=== PATIENT | male | born 1985 | race Caucasian/White ===

== ENCOUNTER 2018-03-24 12:28 | Observation (INO) ==
[2018-03-24 13:31] LABS: Bilirubin,Urine Large (Negative); Clarity,Urine Clear (Clear); Color,Urine Orange (Yellow); Glucose,Urine (UA) Normal (Normal); Ketones,Urine Trace mg/dL (Negative); Specific Gravity,Urine 1.015 (1.010-1.025)
[2018-03-24 13:31] LABS: Basophils % 0.6 %; Eosinophils # 0.1 K/mcL (0.0-0.6); Eosinophils % 0.7 %; Hematocrit 42.2 % (37.5-50.1); Hemoglobin 14.5 g/dL (12.9-16.9); Immature Granulocytes % 0.6 % (0-4); Lymphocytes # 1.4 K/mcL (0.6-4.6); Lymphocytes % 20.2 %; Mean Corpuscular HGB Conc 34.4 g/dL (31.6-35.5); Mean Corpuscular Hemoglobin 27.7 pg (28.0-33.3); Mean Corpuscular Volume 80.7 fL (83.0-100.0); Mean Platelet Volume 10.2 fL (9.4-12.4); Monocytes # 0.9 K/mcL (0.0-1.3); Monocytes % 13.8 %; Neutrophils # 4.3 K/mcL (1.6-8.9); Platelet Count 313 K/mcL (140-400); Red Blood Count 5.23 M/mcL (4.19-5.50); Segmented Neutrophils % 64.1 %
[2018-03-24 13:32] LABS: Blood,Urine Negative (Negative); Leukocyte Esterase,Urine Trace (Negative); Nitrite,Urine Negative (Negative); Protein,Urine Negative (Neg-Trace); Urobilinogen,Urine Normal (Normal)
[2018-03-24 13:34] LABS: Bacteria,Urine Moderate per hpf (None-Few); RBC,Urine 0-3 per hpf (0-3); Squamous Epithelial Cell,Urine Few per lpf (None-Few); WBC,Urine 0-3 per hpf (0-3)
--- NOTE | 2018-03-24 14:06 | Emergency Department Note ---
Disposition Clinical Impression: Jaundice Hepatitis C Qualifiers: Viral hepatitis chronicity: unspecified Hepatic coma status: without hepatic coma Qualified Code(s): B19.20 - Unspecified viral hepatitis C without hepatic coma Abdominal pain Qualifiers: Abdominal location: right upper quadrant Qualified Code(s): R10.11 - Right upper quadrant pain Disposition: Admitted As Inpatient Condition: Fair General Adult HPI - General Chief complaint: ED General Medical Stated complaint: Jaundice/abd pain/NV Source: patient, family Limitations: no limitations Nursing Notes Reviewed: Yes Vital Signs Reviewed: Yes - History of Present Illness HPI Narrative: 32-year-old male presents emergency department with concern for right upper quadrant pain, turning more yellow, nausea vomiting. Patient states that he had episode of nausea vomiting couple days ago. Patient has history of hepatitis C. Is secondary to IV drug use. Patient denies any alcohol use. Does report using cocaine, marijuana, opiates. Pain Scale: 5 - Related Data Home Medications Medication Instructions Recorded Confirmed Tamsulosin HCl [Flomax] 0.4 mg PO DAILY 03/24/18 03/24/18 Testosterone [Androgel] 6 pump TD DAILY 03/24/18 03/24/18 Allergies Allergy/AdvReac Type Severity Reaction Status Date / Time No Known Allergies Allergy Verified 03/24/18 12:53 All systems ED: reviewed and negative except as stated. Review of Systems: As Per HPI Constitutional: Denies: fever Respiratory: Denies: dyspnea Gastrointestinal: Reports: abdominal pain, nausea, vomiting, diarrhea Genitourinary: Reports: dysuria. Denies: urgency, frequency Musculoskeletal: Denies: neck pain Integumentary: Denies: rash Neurological: Denies: headache, weakness, numbness, paresthesias Psychiatric: Denies: anxiety Past Medical History - Past Medical History Medical history: Reports: hepatitis, other Psychiatric history: Reports: anxiety - Social History Smoking Status: Current some day smoker Smokeless Tobacco Status: No Alcohol use: Reports: none Drug use: Reports: cocaine, opiates, marijuana, IV Drug Use Physical Exam - General Limitations: no limitations General appearance: alert - Head Head exam: normocephalic - Eye Eye exam: Present: EOMI, scleral icterus - ENT ENT exam: normal oropharynx - Neck Neck exam: Present: trachea midline - Chest Chest inspection: Present: symmetric chest wall rise - Respiratory Respiratory exam: Present: normal lung sounds bilaterally. Absent: respiratory distress - Cardiovascular Cardiovascular exam: Present: regular rate, normal rhythm, normal heart sounds - Abdominal Exam Abdominal exam: Present: soft, Non-Tender. Absent: distention, guarding, rebound, rigidity - Extremities Exam Extremities exam: Present: normal capillary refill - Expanded Lower Extremity Exam Hip/Pelvis exam: Present: full ROM - Back Exam Back exam: Present: full ROM. Absent: CVA tenderness (R), CVA tenderness (L) - Neurological Exam Neurological exam: Present: alert, oriented X3 - Psychiatric Psychiatric exam: Present: normal affect, normal mood Course Vital Signs Temperature 98.9 F 03/24/18 12:53 Pulse Rate 101 03/24/18 12:53 Respiratory Rate 20 03/24/18 12:53 Blood Pressure 128/75 03/24/18 12:53 O2 Sat by Pulse Oximetry 99 03/24/18 12:53 Temperature 98.9 F 03/24/18 13:13 Pulse Rate 78 03/24/18 17:41 Respiratory Rate 16 03/24/18 17:41 Blood Pressure 130/76 03/24/18 17:41 O2 Sat by Pulse Oximetry 100 03/24/18 17:41 Oxygen Delivery Oxygen Delivery Room Air Medical Decision Making - [facility] Narrative Medical decision making narrative: 32-year-old male presents emergency department with concern for right upper quadrant abdominal pain, intermittent nausea vomiting a few days ago, with jaundice. Patient has a total bilirubin of 12.1. He has a direct bilirubin of 7.6, indirect at 4.5. AST is 89, a ALT is greater than 500. Patient does have history of hepatitis C. We obtained a CT scan of abdomen and pelvis as well as the right upper quadrant ultrasound. Both reported a contracted gallbladder. Liver ultrasound revealed a punctate gallbladder polyp. Possible wall thickening in the descending colon. Do not think this is a colitis picture at this time. We will not give antibiotics at this time. I spoken to Dr. Gentile, the communications technologist. He stated he would follow patient on the floor as a consult. Also stated to order a by Tee panel. This is been ordered and is pending at the time of admission. Spoke with the hospitalist who requested Tylenol as well as urine drug screen. These results are currently pending at time of admission. I discussed admission with patient as well as parents at bedside. They agree with plan. Patient jaundice, but not in any acute distress at time of admission. Abdomen/Pelvis CT 03/24/18 14:06 IMPRESSION: 1. Mild wall thickening in the ascending colon, which is nonspecific and could be related to incomplete distention/peristalsis versus colitis. 2. Contracted gallbladder. 3. Normal appendix. 4. Moderate fecal material throughout the colon, suggesting constipation. 5. Tiny focus of hypoenhancement in the posterior upper left kidney. This finding can be seen in the setting of pyelonephritis, but this does not appear to fit with the patient's symptoms. Other possibilities might include artifact or irregular tiny complex cyst. Correlation with clinical findings is recommended. D/ / 03/24/2018 16:22:20 Tawanna Marie / omid Interpreting Provider: Tawanna Marie Liver Ultrasound 03/24/18 14:07 IMPRESSION: 1. Contracted gallbladder. 2. Probable punctate gallbladder polyp. 3. A 2.1 cm right renal cyst. 4. Suboptimal evaluation of the pancreas due to overlying bowel gas. D/ / 03/24/2018 15:38:10 Mary Ellen George MD / omid Interpreting Provider: Mary Ellen George MD Vital Signs Temperature 98.9 F 03/24/18 12:53 Pulse Rate 101 03/24/18 12:53 Respiratory Rate 20 03/24/18 12:53 Blood Pressure 128/75 03/24/18 12:53 O2 Sat by Pulse Oximetry 99 03/24/18 12:53 Temperature 98.9 F 03/24/18 13:13 Pulse Rate 78 03/24/18 17:41 Respiratory Rate 16 03/24/18 17:41 Blood Pressure 130/76 03/24/18 17:41 O2 Sat by Pulse Oximetry 100 03/24/18 17:41 Oxygen Delivery Oxygen Delivery Room Air - Lab Data Result diagrams: 03/24/18 13:13 03/24/18 13:13 Lab Results 03/24/18 03/24/18 03/24/18 Range/Units 13:10 13:13 13:13 WBC 6.7 (4.3-11.1) K/mcL RBC 5.23 (4.19-5.50) M/mcL Hgb 14.5 (12.9-16.9) g/dL Hct 42.2 (37.5-50.1) % MCV 80.7 L (83.0-100.0) fL MCH 27.7 L (28.0-33.3) pg MCHC 34.4 (31.6-35.5) g/dL RDW 18.0 H (11.5-14.5) % Plt Count 313 (140-400) K/mcL MPV 10.2 (9.4-12.4) fL Immature Gran % 0.6 (0-4) % Seg Neutrophils % 64.1 % Lymphocytes % 20.2 % Monocytes % 13.8 % Eosinophils % 0.7 % Basophils % 0.6 % Neutrophils # 4.3 (1.6-8.9) K/mcL Lymphocytes # 1.4 (0.6-4.6) K/mcL Monocytes # 0.9 (0.0-1.3) K/mcL Eosinophils # 0.1 (0.0-0.6) K/mcL Basophils # 0.0 (0.0-0.2) K/mcL Sodium 137 (136-145) mEq/L Potassium 3.6 (3.5-5.1) mEq/L Chloride 102 (98-107) mEq/L Carbon Dioxide 30 H (23-29) mEq/L BUN 8 (6-20) mg/dL Creatinine 0.86 (0.70-1.30) mg/dL Est GFR ( Amer) > 60 (> 60) Est GFR (Non-Af Amer) > 60 (> 60) BUN/Creatinine Ratio 9 (6-26) Glucose 126 H (70-105) mg/dL Calculated Osmolality 284 (280-300) Calcium 8.9 (8.6-10.3) mg/dL Total Bilirubin 12.8 H (0.3-1.0) mg/dL Direct Bilirubin (0.0-0.2) mg/dL Indirect Bilirubin (0.0-1.2) mg/dL AST 94 H (13-39) Units/L ALT > 500 H (7-52) Units/L Alkaline Phosphatase 160 H (34-104) Units/L Serum Total Protein 6.8 (6.4-8.9) g/dL Albumin 3.2 L (3.5-5.7) g/dL Globulin 3.6 H (2.4-3.5) g/dL Albumin/Globulin Ratio 0.9 L (1.1-2.2) Amylase 72 (29-103) Units/L Lipase 74 (11-82) Units/L Urine Color [place] A (Yellow) Urine Clarity Clear (Clear) Urine pH 6.0 (5.0-8.0) pH Units Ur Specific [place] 1.015 (1.010-1.025) Urine Protein Negative (Neg-Trace) mg/dL Urine Glucose (UA) Normal (Normal) mg/dL Urine Ketones Trace H (Negative) mg/dL Urine Blood Negative (Negative) Urine Nitrite Negative (Negative) Urine Bilirubin Large H (Negative) Urine Urobilinogen Normal (Normal) mg/dL Ur Leukocyte Esterase Trace H (Negative) Urine Microscopic RBC 0-3 (0-3) per hpf Urine Microscopic WBC 0-3 (0-3) per hpf Ur Squamous Epith Cells Few (None-Few) per lpf Urine Bacteria Moderate H (None-Few) per hpf Ur Culture Indicated? YES A (NO) Salicylates (15.0-30.0) mg/dL Acetaminophen (10-20) mcg/mL Ethyl Alcohol (Less than 10) mg/dL 03/24/18 03/24/18 Range/Units 16:46 16:46 WBC (4.3-11.1) K/mcL RBC (4.19-5.50) M/mcL Hgb (12.9-16.9) g/dL Hct (37.5-50.1) % MCV (83.0-100.0) fL MCH (28.0-33.3) pg MCHC (31.6-35.5) g/dL RDW (11.5-14.5) % Plt Count (140-400) K/mcL MPV (9.4-12.4) fL Immature Gran % (0-4) % Seg Neutrophils % % Lymphocytes % % Monocytes % % Eosinophils % % Basophils % % Neutrophils # (1.6-8.9) K/mcL Lymphocytes # (0.6-4.6) K/mcL Monocytes # (0.0-1.3) K/mcL Eosinophils # (0.0-0.6) K/mcL Basophils # (0.0-0.2) K/mcL Sodium (136-145) mEq/L Potassium (3.5-5.1) mEq/L Chloride (98-107) mEq/L Carbon Dioxide (23-29) mEq/L BUN (6-20) mg/dL Creatinine (0.70-1.30) mg/dL Est GFR ( Amer) (> 60) Est GFR (Non-Af Amer) (> 60) BUN/Creatinine Ratio (6-26) Glucose (70-105) mg/dL Calculated Osmolality (280-300) Calcium (8.6-10.3) mg/dL Total Bilirubin 12.1 H 12.1 H (0.3-1.0) mg/dL Direct Bilirubin 7.4 H 7.6 H (0.0-0.2) mg/dL Indirect Bilirubin 4.7 H 4.5 H (0.0-1.2) mg/dL AST 89 H (13-39) Units/L ALT > 500 H (7-52) Units/L Alkaline Phosphatase 159 H (34-104) Units/L Serum Total Protein 6.6 (6.4-8.9) g/dL Albumin 3.1 L (3.5-5.7) g/dL Globulin 3.5 (2.4-3.5) g/dL Albumin/Globulin Ratio 0.9 L (1.1-2.2) Amylase (29-103) Units/L Lipase (11-82) Units/L Urine Color (Yellow) Urine Clarity (Clear) Urine pH (5.0-8.0) pH Units Ur Specific [place] (1.010-1.025) Urine Protein (Neg-Trace) mg/dL Urine Glucose (UA) (Normal) mg/dL Urine Ketones (Negative) mg/dL Urine Blood (Negative) Urine Nitrite (Negative) Urine Bilirubin (Negative) Urine Urobilinogen (Normal) mg/dL Ur Leukocyte Esterase (Negative) Urine Microscopic RBC (0-3) per hpf Urine Microscopic WBC (0-3) per hpf Ur Squamous Epith Cells (None-Few) per lpf Urine Bacteria (None-Few) per hpf Ur Culture Indicated? (NO) Salicylates < 2.5 L (15.0-30.0) mg/dL Acetaminophen < 10 L (10-20) mcg/mL Ethyl Alcohol < 10 (Less than 10) mg/dL
[2018-03-24] MEDS ORDERED: Isovue-370 500 ML INFUS..BTL IV ONE (14:07)
[2018-03-24 14:16] LABS: Alanine Aminotransferase > 500 Units/L (7-52); Albumin 3.2 g/dL (3.5-5.7); Albumin/Globulin Ratio 0.9 (1.1-2.2); Alkaline Phosphatase 160 Units/L (34-104); Amylase 72 Units/L (29-103); Aspartate Amino Transferase 94 Units/L (13-39); BUN/Creatinine Ratio 9 (6-26); Bilirubin,Total 12.8 mg/dL (0.3-1.0); Blood Urea Nitrogen 8 mg/dL (6-20); Calcium 8.9 mg/dL (8.6-10.3); Carbon Dioxide 30 mEq/L (23-29); Chloride 102 mEq/L (98-107); Globulin 3.6 g/dL (2.4-3.5); Glucose 126 mg/dL (70-105); Lipase 74 Units/L (11-82); Osmolality,Calculated 284 (280-300); Potassium 3.6 mEq/L (3.5-5.1); Sodium 137 mEq/L (136-145); Total Protein 6.8 g/dL (6.4-8.9); eGFR For African Americans > 60 (> 60); eGFR For Non-African Americans > 60 (> 60)
[2018-03-24] MEDS ORDERED: Nicotine 21 MG PATCH.TD24 TD STA (14:34)
--- NOTE | 2018-03-24 16:41 | Emergency Department Note ---
Disposition Clinical Impression: Jaundice Hepatitis C Qualifiers: Viral hepatitis chronicity: unspecified Disposition: Admitted As Inpatient Referrals: Adan Andujar MD [Primary Care Provider] - Forms: ED Satisfaction Letter, Work/School Release General Adult HPI - General Chief complaint: ED General Medical Stated complaint: Jaundice/abd pain/NV Source: patient, family Limitations: no limitations - History of Present Illness Pain Scale: 5 - Related Data Home Medications Medication Instructions Recorded Confirmed Amitriptyline 01/10/18 Androgel 01/10/18 Flomax 01/10/18 Pantoprazole 01/10/18 Previous Rx's Medication Instructions Recorded Acyclovir [Zovirax] 400 mg PO 5XD 5 Days #25 tablet 01/10/18 Allergies Allergy/AdvReac Type Severity Reaction Status Date / Time No Known Allergies Allergy Verified 03/24/18 12:53 Past Medical History - Past Medical History Medical history: Reports: hepatitis, other Psychiatric history: Reports: anxiety - Social History Smoking Status: Current some day smoker Smokeless Tobacco Status: No Alcohol use: Reports: none Drug use: Reports: cocaine, opiates, marijuana, IV Drug Use Physical Exam - General Limitations: no limitations General appearance: alert Course Vital Signs Temperature 98.9 F 03/24/18 12:53 Pulse Rate 101 03/24/18 12:53 Respiratory Rate 20 03/24/18 12:53 Blood Pressure 128/75 03/24/18 12:53 O2 Sat by Pulse Oximetry 99 03/24/18 12:53 Temperature 98.9 F 03/24/18 13:13 Pulse Rate 88 03/24/18 16:12 Respiratory Rate 16 03/24/18 16:12 Blood Pressure 119/70 03/24/18 16:12 O2 Sat by Pulse Oximetry 100 03/24/18 16:12 Oxygen Delivery Oxygen Delivery Room Air Medical Decision Making - Lab Data Result diagrams: 03/24/18 13:13 03/24/18 13:13 Lab Results 03/24/18 03/24/18 03/24/18 Range/Units 13:10 13:13 13:13 WBC 6.7 (4.3-11.1) K/mcL RBC 5.23 (4.19-5.50) M/mcL Hgb 14.5 (12.9-16.9) g/dL Hct 42.2 (37.5-50.1) % MCV 80.7 L (83.0-100.0) fL MCH 27.7 L (28.0-33.3) pg MCHC 34.4 (31.6-35.5) g/dL RDW 18.0 H (11.5-14.5) % Plt Count 313 (140-400) K/mcL MPV 10.2 (9.4-12.4) fL Immature Gran % 0.6 (0-4) % Seg Neutrophils % 64.1 % Lymphocytes % 20.2 % Monocytes % 13.8 % Eosinophils % 0.7 % Basophils % 0.6 % Neutrophils # 4.3 (1.6-8.9) K/mcL Lymphocytes # 1.4 (0.6-4.6) K/mcL Monocytes # 0.9 (0.0-1.3) K/mcL Eosinophils # 0.1 (0.0-0.6) K/mcL Basophils # 0.0 (0.0-0.2) K/mcL Sodium 137 (136-145) mEq/L Potassium 3.6 (3.5-5.1) mEq/L Chloride 102 (98-107) mEq/L Carbon Dioxide 30 H (23-29) mEq/L BUN 8 (6-20) mg/dL Creatinine 0.86 (0.70-1.30) mg/dL Est GFR ( Amer) > 60 (> 60) Est GFR (Non-Af Amer) > 60 (> 60) BUN/Creatinine Ratio 9 (6-26) Glucose 126 H (70-105) mg/dL Calculated Osmolality 284 (280-300) Calcium 8.9 (8.6-10.3) mg/dL Total Bilirubin 12.8 H (0.3-1.0) mg/dL AST 94 H (13-39) Units/L ALT > 500 H (7-52) Units/L Alkaline Phosphatase 160 H (34-104) Units/L Serum Total Protein 6.8 (6.4-8.9) g/dL Albumin 3.2 L (3.5-5.7) g/dL Globulin 3.6 H (2.4-3.5) g/dL Albumin/Globulin Ratio 0.9 L (1.1-2.2) Amylase 72 (29-103) Units/L Lipase 74 (11-82) Units/L Urine Color [place] A (Yellow) Urine Clarity Clear (Clear) Urine pH 6.0 (5.0-8.0) pH Units Ur Specific [place] 1.015 (1.010-1.025) Urine Protein Negative (Neg-Trace) mg/dL Urine Glucose (UA) Normal (Normal) mg/dL Urine Ketones Trace H (Negative) mg/dL Urine Blood Negative (Negative) Urine Nitrite Negative (Negative) Urine Bilirubin Large H (Negative) Urine Urobilinogen Normal (Normal) mg/dL Ur Leukocyte Esterase Trace H (Negative) Urine Microscopic RBC 0-3 (0-3) per hpf Urine Microscopic WBC 0-3 (0-3) per hpf Ur Squamous Epith Cells Few (None-Few) per lpf Urine Bacteria Moderate H (None-Few) per hpf Ur Culture Indicated? YES A (NO) Attestation Statement - Attestation Attestation: I examined this patient and my medical decision-making was reviewed with the Resident Physician. I agree with the documented findings, disposition and treatment plan as described except to the extent set forth below. 32-year-old male presented to the emergency room for jaundice. Patient has a history of hepatitis C. It appears there is an acute flareup of his hep C. No obstruction lesions on liver ultrasound or CT abdomen and pelvis. We consulted with GI. We will admit the patient to the hospitalist service. Patient was updated. He agrees to stay. They have ordered some hepatitis panels as well.
[2018-03-24] MEDS ORDERED: 0.9 % Sodium Chloride 1,000 ML IVC ONE (17:19)
[2018-03-24 17:42] LABS: Bilirubin,Direct 7.6 mg/dL (0.0-0.2); Bilirubin,Indirect 4.5 mg/dL (0.0-1.2); Bilirubin,Total 12.1 mg/dL (0.3-1.0)
[2018-03-24 17:45] LABS: Acetaminophen < 10 mcg/mL (10-20); Alanine Aminotransferase > 500 Units/L (7-52); Albumin 3.1 g/dL (3.5-5.7); Albumin/Globulin Ratio 0.9 (1.1-2.2); Alkaline Phosphatase 159 Units/L (34-104); Aspartate Amino Transferase 89 Units/L (13-39); Bilirubin,Direct 7.4 mg/dL (0.0-0.2); Bilirubin,Indirect 4.7 mg/dL (0.0-1.2); Bilirubin,Total 12.1 mg/dL (0.3-1.0); Ethanol < 10 mg/dL (Less than 10); Globulin 3.5 g/dL (2.4-3.5); Salicylate < 2.5 mg/dL (15.0-30.0); Total Protein 6.6 g/dL (6.4-8.9)
[2018-03-24] MEDS ORDERED: Naloxone 0.4 MG/ML INJ IVP PRN (18:01)
[2018-03-24 20:12] LABS: Amphetamine Screen,Urine Negative ng/mL (Cutoff=1000); Barbiturate Screen,Urine Negative ng/mL (Cutoff=200); Benzodiazepines Screen,Urine Negative ng/mL (Cutoff=200); Cannabinoid Screen,Urine Positive ng/mL (Cutoff = 50); Cocaine Screen,Urine Negative ng/mL (Cutoff= 300); Opiate Screen,Urine Negative ng/mL (Cutoff=300); Phencyclidine Screen,Urine Negative ng/mL (Cutoff=25)
--- NOTE | 2018-03-24 21:07 | Internal Med History&Physical ---
Date of Encounter: 03/25/18 Time of Encounter: 21:00 Internal Medicine - H&P: HPI Chief complaint: Fatigue for a couple of weeks History of present illness: Mr. Joseph is a 32 year old male with pmh of hepc diagnosed about 6 years ago s/ p Iv drug abuse presenting with complaints of right upper quadrant abdominal pain and fatigue for a couple of weeks with yellowing of the eyes. Denies any acute shortness of breath, fevers or chills. Ultrasound and CT of abdomen/ pelvis was done in the ED showing no acute biliary obstruction. Gi was consulted was consulted as well from the ED. He complains of fatigue for a couple of weeks as well as sharp right sided upper abdominal pain. Denies any nausea or vomiting. PAtoient admits taking a couple of po ativans and tylenols latestephanie as well as some oral pain meds Past Med Surg Social Fam HX - Past Medical History Medical history: hepatitis, other Additional medical history: hep c Psychiatric history: anxiety - Past Surgical History Additional surgical history: right shoulder, pins in left leg. - Social History Smoking Status: Current some day smoker Packs per day: 0.25 Smokeless Tobacco Status: No Alcohol use: none Drug use: cocaine, opiates, marijuana, IV Drug Use Internal Medicine - H&P: Meds Tamsulosin HCl [Flomax] 0.4 mg PO DAILY 03/24/18 [History] Testosterone [Androgel] 6 pump TD DAILY 03/24/18 [History] 3 Allergy/AdvReac Type Severity Reaction Status Date / Time No Known Allergies Allergy Verified 03/24/18 12:53 All Systems PM: A 10-system review of systems was performed and is negative for pertinent findings except as documented above in the HPI. - Constitutional Constitutional: fatigue, lethargy, no chills, no fever(s), no night sweats - EENT Eyes: no change in vision, no discharge, no pain, no photophobia Ears: no ear discharge, no ear pain, no tinnitus Nose, mouth and throat: no dysphagia, no nasal discharge, no neck pain, no sore throat - Cardiovascular Cardiovascular ROS IM: no chest pain, no diaphoresis, no dyspnea, no lightheadedness, no palpitations, no syncope - Respiratory Respiratory: no cough, no dyspnea, no wheezing, no excessive phlegm production - Gastrointestinal Gastrointestinal: abdominal pain, no diarrhea, no hematemesis, no hematochezia, no melena, no nausea, no vomiting - Musculoskeletal Musculoskeletal ROS IM: no numbness, no tingling - Integumentary Integumentary IM: no rash, no unusual bruising - Neurological Neurological ROS: no confusion, no convulsions, no focal weakness, no numbness, no tingling, no tremor(s) - Hematologic/Lymphatic Hematologic/Lymphatic: no easy bruising - Constitutional Vitals: Temp Pulse Resp BP Pulse Ox 98.2 F 87 15 119/69 100 03/24/18 18:48 03/24/18 18:48 03/24/18 18:48 03/24/18 18:48 03/24/18 18:48 - Head Head exam: Present: atraumatic, normocephalic - Eye Eye exam: Present: PERRL, scleral icterus, conjuntiva pink Pupils: Present: PERRL - Neck Neck exam general surgery: Present: supple, trachea midline. Absent: lymphadenopathy - Respiratory Respiratory exam: Present: CTAB. Absent: accessory muscle use, rales, rhonchi, wheezes - Cardiovascular Cardiovascular exam: Present: RRR, +S1, +S2. Absent: diastolic murmur, gallop, rubs, systolic murmur - GI/Abdominal GI/Abdominal exam: Present: normal bowel sounds, soft, no peritoneal signs. Absent: distended, tenderness - Extremities Exam Extremities exam: Present: warm, radial pulses palpable and symmetrical. Absent : calf tenderness, cyanotic, pedal edema - Neurological Exam Neurological exam: Present: CN II-XII intact, oriented X3, no focal deficits. Absent: pronater drift, facial droop, speech deficit - Skin Skin exam: Present: dry, intact Internal Med - H&P Results - Labs CBC & Chem 7: 03/25/18 05:33 03/25/18 05:40 - Assessment and plan (1) Acute hepatic failure Current Visit: Yes Status: Acute Assessment and plan: Pt has acute hepatic failure with transaminitis and jaundice with AST >500. Unclear etiology may be medication related vs viral. Pt admits taking tylenol and ativan as needed. He says his hepatitis C has been stable and he hasn't needed. Also says he has been dehydrated. Will start on IV fluids, abdominal ultrasound showed no evidence of biliary obstruction. Tylenol levels were WNL. Repeat CMP in am. GI recs appreciated Qualifiers: Hepatic coma status: without hepatic coma Qualified Code(s): K72.00 - Acute and subacute hepatic failure without coma (2) Jaundice Current Visit: Yes Status: Acute Assessment and plan: See #1 (3) Hepatitis C Current Visit: Yes Status: Acute Assessment and plan: Stable, monitor CMP, f/u viral hepatitis panel Qualifiers: Viral hepatitis chronicity: unspecified Hepatic coma status: without hepatic coma Qualified Code(s): B19.20 - Unspecified viral hepatitis C without hepatic coma (4) DVT prophylaxis Current Visit: Yes Status: Acute Assessment and plan: scd - Time Spent With Patient Total time spent is greater than 50% in coordination of care (as documented) at patient's floor/unit and/or counseling patient:
[2018-03-24] MEDS: 0.9 % Sodium Chloride 1,000 ML IVC SCH (22:42)
[2018-03-25] MEDS ORDERED: TESTOSTERONE PUMP TP SCH (09:00)
[2018-03-25 09:47] LABS: Alanine Aminotransferase 443 Units/L (7-52); Albumin 2.8 g/dL (3.5-5.7); Albumin/Globulin Ratio 0.8 (1.1-2.2); Alkaline Phosphatase 140 Units/L (34-104); Aspartate Amino Transferase 74 Units/L (13-39); BUN/Creatinine Ratio 11 (6-26); Bilirubin,Total 10.8 mg/dL (0.3-1.0); Blood Urea Nitrogen 9 mg/dL (6-20); Calcium 8.3 mg/dL (8.6-10.3); Carbon Dioxide 29 mEq/L (23-29); Chloride 105 mEq/L (98-107); Globulin 3.5 g/dL (2.4-3.5); Glucose 96 mg/dL (70-105); Magnesium 1.6 mg/dL (1.6-2.6); Osmolality,Calculated 285 (280-300); Phosphorous 3.3 mg/dL (2.7-4.5); Sodium 138 mEq/L (136-145); Total Protein 6.3 g/dL (6.4-8.9); eGFR For African Americans > 60 (> 60); eGFR For Non-African Americans > 60 (> 60)
[2018-03-25 10:25] LABS: Basophils % 0.7 %; Eosinophils # 0.1 K/mcL (0.0-0.6); Eosinophils % 1.2 %; Hematocrit 39.3 % (37.5-50.1); Hemoglobin 12.6 g/dL (12.9-16.9); Immature Granulocytes % 0.9 % (0-4); Immature Platelets 3.9 % (1.1-6.1); Lymphocytes # 1.2 K/mcL (0.6-4.6); Lymphocytes % 21.9 %; Mean Corpuscular HGB Conc 32.1 g/dL (31.6-35.5); Mean Corpuscular Hemoglobin 26.6 pg (28.0-33.3); Mean Corpuscular Volume 82.9 fL (83.0-100.0); Mean Platelet Volume 10.4 fL (9.4-12.4); Monocytes % 18.1 %; Neutrophils # 3.2 K/mcL (1.6-8.9); Platelet Count 307 K/mcL (140-400); Red Blood Count 4.74 M/mcL (4.19-5.50); Red Cell Distribution Width 18.6 % (11.5-14.5); Segmented Neutrophils % 57.2 %
[2018-03-25] MEDS: 0.9 % Sodium Chloride 1,000 ML IVC SCH (10:49)
[2018-03-25 11:58] LABS: Platelet Estimate Normal (Normal)
[2018-03-25 12:51] LABS: Hepatitis B Core IgM Nonreactive (Nonreactive); Hepatitis B Surface Antigen Nonreactive (Nonreactive)
[2018-03-25] MEDS ORDERED: Nicotine 21 MG PATCH.TD24 ONE (13:53)
[2018-03-25] MEDS: Nicotine 21 MG PATCH.TD24 TD SCH (13:58)
[2018-03-25 15:06] LABS: Hepatitis A Antibody IgM Reactive (Nonreactive)
[2018-03-25 15:07] LABS: Hepatitis C Virus Antibody Reactive (Nonreactive)
[2018-03-25] MEDS ORDERED: 0.9 % Sodium Chloride 1,000 ML IVC SCH (15:30)
[2018-03-25] MEDS ORDERED: 0.9 % Sodium Chloride 1,000 ML ONE (16:35)
[2018-03-25] MEDS ORDERED: *HR* LORazepam 1 MG TABLET PO ONE (18:09)
[2018-03-25] MEDS: *HR* LORazepam 0.5 MG TABLET ONE ×2 (18:14→18:15)
--- NOTE | 2018-03-25 21:00 | Internal Med Progress Note ---
Date of Encounter: 03/25/18 Time of Encounter: 21:00 - Assessment and plan (1) Jaundice Status: Acute (2) Hepatitis A Status: Acute Qualifiers: Hepatic coma status: without hepatic coma Qualified Code(s): B15.9 - Hepatitis A without hepatic coma (3) Hepatitis C Status: Chronic Qualifiers: Viral hepatitis chronicity: unspecified Hepatic coma status: without hepatic coma Qualified Code(s): B19.20 - Unspecified viral hepatitis C without hepatic coma (4) Tylenol toxicity Status: Suspected Qualifiers: Encounter type: initial encounter Injury intent: accidental or unintentional Qualified Code(s): T39.1X1A - Poisoning by 4-Aminophenol derivatives, accidental (unintentional), initial encounter - Time Spent With Patient Total time spent is greater than 50% in coordination of care (as documented) at patient's floor/unit and/or counseling patient: 25 - 35 minutes - Subjective Interval history: .. The patient feels pretty good. His main concern is Jaundice. He was somewhat weak but stronger than yesterday. Denies abdominal pain, nausea and vomiting. Denies chest pain. Denies difficulty breathing. OBJECTIVE: .. Skin: Free of rash and discoloration. ENMT: Oral/pharyngeal mucosa is normal in appearance. Eyes: Sclera is yellow. There is no discharge from eyes. Respiratory: Normal breath sounds; no crackles or wheezes. CV: Heart is regular; no gallop or murmur. GI: Abdomen is soft and not tender. There is no palpable mass or visceromegaly. Neuro: There is no focal deficits. ASSESSMENT AND PLAN: .. Jaundice. He has a positive IgM antibody to hepatitis A indicating that he has active hepatitis A infection. He has history of hepatitis C. He does have positive antibody to hepatitis C. He was taking quite a bit of Tylenol recently5-6 tablets every day for the last few weeks. We are waiting for GI consult. Will repeat his liver function tests tomorrow morning. - Constitutional Vitals: Temp Pulse Resp BP Pulse Ox 98.9 F 76 14 124/79 99 03/25/18 19:15 03/25/18 19:15 03/25/18 19:15 03/25/18 19:15 03/25/18 19:15 Internal Medicine: Result - Labs CBC & Chem 7: 03/26/18 07:48 03/26/18 07:48 Labs: Short CBC 03/25/18 Range/Units 05:33 WBC 5.6 (4.3-11.1) K/mcL Hgb 12.6 L D (12.9-16.9) g/dL Hct 39.3 (37.5-50.1) % Plt Count 307 (140-400) K/mcL Neutrophils # 3.2 (1.6-8.9) K/mcL BMP 03/25/18 05:40 Sodium 138 Potassium 4.0 Chloride 105 Carbon Dioxide 29 BUN 9 Creatinine 0.83 Glucose 96 Calcium 8.3 L Liver Function 03/25/18 Range/Units 05:40 Total Bilirubin 10.8 H (0.3-1.0) mg/dL AST 74 H (13-39) Units/L ALT 443 H (7-52) Units/L Alkaline Phosphatase 140 H (34-104) Units/L Albumin 2.8 L (3.5-5.7) g/dL Consult Discharge Plan - Plan Additional Instructions: Follow-up with GI specialist -- in 1-2 weeks. CMP -- in 5-7 days; results to PCP/GI doctor. Referrals: Adan Andujar MD [Primary Care Provider] -
[2018-03-26 07:47] VITALS: BP 118/74
[2018-03-26 08:14] LABS: Basophils % 0.7 %; Eosinophils # 0.1 K/mcL (0.0-0.6); Hematocrit 41.3 % (37.5-50.1); Hemoglobin 13.7 g/dL (12.9-16.9); Immature Granulocytes % 0.7 % (0-4); Lymphocytes # 1.3 K/mcL (0.6-4.6); Lymphocytes % 22.1 %; Mean Corpuscular HGB Conc 33.2 g/dL (31.6-35.5); Mean Corpuscular Volume 81.3 fL (83.0-100.0); Mean Platelet Volume 10.4 fL (9.4-12.4); Monocytes % 17.5 %; Neutrophils # 3.4 K/mcL (1.6-8.9); Platelet Count 355 K/mcL (140-400); Red Blood Count 5.08 M/mcL (4.19-5.50); Red Cell Distribution Width 18.6 % (11.5-14.5)
[2018-03-26 08:34] LABS: Alanine Aminotransferase 317 Units/L (7-52); Albumin 3.1 g/dL (3.5-5.7); Albumin/Globulin Ratio 0.9 (1.1-2.2); Alkaline Phosphatase 171 Units/L (34-104); Aspartate Amino Transferase 68 Units/L (13-39); BUN/Creatinine Ratio 10 (6-26); Bilirubin,Total 11.9 mg/dL (0.3-1.0); Blood Urea Nitrogen 9 mg/dL (6-20); Calcium 8.5 mg/dL (8.6-10.3); Carbon Dioxide 25 mEq/L (23-29); Chloride 105 mEq/L (98-107); Globulin 3.6 g/dL (2.4-3.5); Glucose 96 mg/dL (70-105); Magnesium 1.7 mg/dL (1.6-2.6); Osmolality,Calculated 277 (280-300); Potassium 3.9 mEq/L (3.5-5.1); Sodium 134 mEq/L (136-145); Total Protein 6.7 g/dL (6.4-8.9); eGFR For African Americans > 60 (> 60); eGFR For Non-African Americans > 60 (> 60)
[2018-03-26] MEDS: Nicotine 21 MG PATCH.TD24 TD SCH (10:46)
--- NOTE | 2018-03-26 11:06 | Discharge Summary ---
- NOTES TO OUTPATIENT PROVIDER Notes to Outpatient Provider: CMP - IN ABOUT 5-7 DAYS. DO NOT USE APAP. Date of Encounter: 03/26/18 Time of Encounter: 11:04 - Discharge Diagnosis (1) Hepatitis A Priority: Primary Status: Acute Qualifiers: Hepatic coma status: without hepatic coma Qualified Code(s): B15.9 - Hepatitis A without hepatic coma (2) Hepatitis C Priority: Secondary Status: Chronic Qualifiers: Viral hepatitis chronicity: unspecified Hepatic coma status: without hepatic coma Qualified Code(s): B19.20 - Unspecified viral hepatitis C without hepatic coma (3) Tylenol toxicity Priority: Secondary Status: Suspected Qualifiers: Encounter type: initial encounter Injury intent: accidental or unintentional Qualified Code(s): T39.1X1A - Poisoning by 4-Aminophenol derivatives, accidental (unintentional), initial encounter Hospital course: Mr. Joseph is a 32 year old male. The patient was admitted with jaundice. This was his main concern. Not associated with any abdominal pain, nausea or vomiting. He did have some weakness in the last 2 weeks preceding this admission. His first her AST was 94 ; with ALT over 500. His first bilirubin was 7.4. We requested hepatitis panel. It happened to be reactive to hepatitis A IgM antibody and hepatitis C antibody screen. The patient was taking average 5-6 tablets of Tylenol per day in the last 2 weeks preceding this admission. We requested GI consult. It was during the weekend. The specialist did not see the patient in the hospital. The patient felt good on the next day after the admission. His liver function tests were 68, 317 and 11.9 respectively. Ultrasound of gallbladder/liver showed contracted gallbladder and probable punctate gallbladder polyp. There was evidence for 2.1 cm right renal cyst. We decided to discharge him home on the second day of hospitalization. Condition at discharge: Mildly weak. Jaundiced. Not having any pain, nausea or vomiting. Physical exam findings are listed separately. The patient is to be followed by a GI specialist in 12 weeks. Discharge discussed with: patient - Time Spent with Patient Total time spent providing and/or coordinating discharge services: Greater than 30 minutes (35 minutes) - Discharge Medications Home Medications: Tamsulosin HCl [Flomax] 0.4 mg PO DAILY 03/24/18 [History] Testosterone [Androgel] 6 pump TD DAILY 2 Days #12 03/26/18 [Rx] Allergies/Adverse Reactions: 3 Allergy/AdvReac Type Severity Reaction Status Date / Time No Known Allergies Allergy Verified 03/24/18 12:53 Date of admission: 03/24/18 17:50 Primary care physician: Adan Andujar MD Consults: 03/24/18 18:58 Consult to Precision Lathe Operator [CONS] Routine Reason for SW Consult: loss of current living situation Discharging clinician: Bj Beltran Anticipated date of discharge: 03/26/18 - Constitutional Vitals: Temp Pulse Resp BP Pulse Ox 97.6 F 81 14 118/74 100 03/26/18 07:45 03/26/18 07:45 03/26/18 07:45 03/26/18 07:45 03/26/18 07:45 - Respiratory Respiratory exam: Present: CTAB. Absent: accessory muscle use, rales, rhonchi, wheezes - Cardiovascular Cardiovascular exam: Present: RRR, +S1, +S2. Absent: diastolic murmur, gallop, rubs, systolic murmur - GI/Abdominal GI/Abdominal exam: Present: normal bowel sounds, soft, no peritoneal signs. Absent: distended, tenderness - Other Additional findings: He is jaundiced. - Patient Status Disposition: Home, Self-Care Condition: Fair Functional capacity at discharge: independent ambulation Overall status at discharge: patient is not back to baseline - Discharge Instructions Follow Up With: Adan Andujar MD [Primary Care Provider] - Additional Instructions: Follow-up with GI specialist -- in 1-2 weeks. CMP -- in 5-7 days; results to PCP/GI doctor. - Diet and Activity Activity: increase activity as tolerated Diet: low fat, low cholesterol - VTE Reasons for not Prescribing Prophylaxis: Treatment not Indicated - Low risk for VTE Deep Vein Thrombosis/Pulmonary Embolism Present on Admission: No
== END 2018-03-26 12:28 | disposition home or self-care (01) ==
LOC: EMEROO 12:28 → 3ANU 12:28 → SUATTDRO 18:01 → 3ANU 18:29
PROVIDERS: ADMIT Student in an Organized Health Care Education/Training Program; ATTEND Internal Medicine